=== PATIENT | female | born 1990 | race Caucasian/White ===

== ENCOUNTER 2016-11-10 12:09 | Emergency (ER) | payer OTHER ==
[2016-11-10 12:37] VITALS: BP 118/78
--- NOTE | 2016-11-10 12:37 | UC ---
Throat Pain/Nasal Danny HPI - HPI Summary HPI Summary: NASAL CONGESTION / COUGH X 1 WEEK + BILATERAL EAR PAIN, NO FEVER, NO CHILLS - History of Current Complaint Chief Complaint: UCGeneralIllness Stated Complaint: UPPER RESPIRATORY Time Seen by Provider: 11/10/16 12:14 Hx Obtained From: Patient Hx Last Menstrual Period: DOES NOT HAVE REG PERIODS USES NEXPLAMON ?: No Onset/Duration: Gradual Onset, Lasting Weeks - 1 Severity: Moderate Cough: Nonproductive Associated Signs & Symptoms: Positive: Sinus Discomfort, Nasal Discharge. Negative: Hoarseness, Fever, Rash - Allergies/Home Medications Allergies/Adverse Reactions: Allergies Allergy/AdvReac Type Severity Reaction Status Date / Time No Known Allergies Allergy Verified 11/10/16 12:25 Home Medications: Home Medications Citalopram TAB* [CeleXA TAB*] 20 mg PO DAILY 11/10/16 [History Confirmed ] PMH/Surg Hx/FS Hx/Imm Hx Endocrine History Of: Reports: Thyroid Disease - Surgical History Surgical History: None - Family History Known Family History: Negative: Diabetes - Social History Alcohol Use: Occasionally Substance Use Type: None Smoking Status (MU): Never Smoked Tobacco Review of Systems Constitutional: Negative Skin: Negative Eyes: Negative ENT: Sore Throat, Nasal Discharge Respiratory: Cough Cardiovascular: Negative Gastrointestinal: Negative Genitourinary: Negative All Other Systems Reviewed And Are Negative: Yes Physical Exam Triage Information Reviewed: Yes Appearance: Well-Appearing, No Pain Distress, Well-Nourished Vital Signs: Initial Vital Signs Temp 98.1 F 11/10/16 12:21 Pulse 77 11/10/16 12:21 Resp 16 11/10/16 12:21 BP 118/78 11/10/16 12:21 Pulse Ox 97 11/10/16 12:21 Vital Signs Reviewed: Yes Eyes: Positive: Conjunctiva Clear ENT: Positive: Normal ENT inspection, Hearing grossly normal, Pharyngeal erythema, Nasal congestion, TM red - RIGHT EAR Neck: Positive: Supple, Nontender, No Lymphadenopathy Respiratory: Positive: Chest non-tender, Lungs clear, Normal breath sounds Cardiovascular: Positive: RRR, No Murmur, Pulses Normal Throat Pain/Nasal Course/Dx - Differential Dx/Diagnosis Provider Diagnoses: OTITIS MEDIA Discharge - Discharge Plan Condition: Stable Disposition: HOME Prescriptions: Amoxicillin (*) 875 mg PO BID #20 tab Patient Education Materials: Otitis Media (ED) Forms: *Work Release Referrals: Lorena Ceron [Primary Care Provider] - As Soon As Possible
== END 2016-11-10 12:45 | disposition home or self-care (01) ==
LOC: UCCORT 12:09
DX: H66.93 Otitis media, unspecified, bilateral (principal); R09.81 Nasal congestion; R05 Cough
CPT/HCPCS: 99212; G0463

== ENCOUNTER 2017-01-19 14:24 | Emergency (ER) | payer OTHER ==
[2017-01-19 14:37] VITALS: BP 110/75
--- NOTE | 2017-01-19 14:49 | UC ---
Throat Pain/Nasal Danny HPI - HPI Summary HPI Summary: ST starting 3 days ago, has gotten really bad with a headache and stuffy nose. In the last day or so painful lump grew on R neck. - History of Current Complaint Chief Complaint: UCGeneralIllness Stated Complaint: SORE THROAT BUMP ON RIGHT SIDE NECK Time Seen by Provider: 01/19/17 14:35 Hx Obtained From: Patient Hx Last Menstrual Period: DOES NOT HAVE REG PERIODS USES NEXPLAMON ?: No Onset/Duration: Gradual Onset, Lasting Days Severity: Moderate Associated Signs & Symptoms: Negative: Fever, Vomiting - Allergies/Home Medications Allergies/Adverse Reactions: Allergies Allergy/AdvReac Type Severity Reaction Status Date / Time No Known Allergies Allergy Verified 01/19/17 14:37 PMH/Surg Hx/FS Hx/Imm Hx Endocrine History Of: Reports: Thyroid Disease - Surgical History Surgical History: None - Family History Known Family History: Negative: Diabetes - Social History Occupation: Employed Full-time Alcohol Use: Occasionally Substance Use Type: None Smoking Status (MU): Never Smoked Tobacco Review of Systems Constitutional: Negative Skin: Negative Eyes: Negative ENT: Sore Throat Respiratory: Negative Cardiovascular: Negative Gastrointestinal: Negative Genitourinary: Negative Motor: Negative Neurovascular: Negative Musculoskeletal: Negative Neurological: Negative Psychological: Negative All Other Systems Reviewed And Are Negative: Yes Physical Exam Triage Information Reviewed: Yes Appearance: Well-Appearing, No Pain Distress, Well-Nourished Vital Signs: Initial Vital Signs Temp 99.9 F 01/19/17 14:33 Pulse 100 01/19/17 14:33 Resp 18 01/19/17 14:33 BP 110/75 01/19/17 14:33 Pulse Ox 98 01/19/17 14:33 Vital Signs Reviewed: Yes Eye Exam: Normal Eyes: Positive: Conjunctiva Clear ENT: Positive: Hearing grossly normal, Pharyngeal erythema, TMs normal, Tonsillar swelling Dental Exam: Normal Neck: Positive: Tenderness @, Enlarged Nodes @ - Markedly enlarged R tonsillar lymph node Respiratory Exam: Normal Respiratory: Positive: Chest non-tender, Lungs clear, Normal breath sounds, No respiratory distress, No accessory muscle use Cardiovascular: Positive: No Murmur Musculoskeletal Exam: Normal Neurological Exam: Normal Neurological: Positive: Alert Psychological Exam: Normal Skin Exam: Normal Throat Pain/Nasal Course/Dx - Course Course Of Treatment: discussed CENTOR criteria, pt is in agreement with treatment for presumptive strep - Differential Dx/Diagnosis Provider Diagnoses: strep tonsillitis Discharge - Discharge Plan Condition: Stable Disposition: HOME Prescriptions: Amoxicillin (*) [Amoxicillin 875 MG (*)] 875 mg PO BID #20 tab Patient Education Materials: Strep Throat (ED) Forms: *Work Release Referrals: Lorena Ceron [Primary Care Provider] -
== END 2017-01-19 14:51 | disposition home or self-care (01) ==
LOC: UCCORT 14:24
DX: J03.00 Acute streptococcal tonsillitis, unspecified (principal)
CPT/HCPCS: 99212; G0463